=== PATIENT | female | born 1985 | race Caucasian/White ===

== ENCOUNTER 2017-02-08 14:55 | Emergency (ER) | payer OTHER ==
[~2017-02-08] VITALS: Ht 162.6 cm; Wt 82.4 kg
[2017-02-08 15:57] LABS: ADD MIUA? YES; BILIRUBIN NEGATIVE; BLOOD MODERATE; COLOR AMBER ((YELLOW)); GLUCOSE (STRIP) NEGATIVE; KETONES 20; LEUKOCYTES MODERATE; NITRITE POSITIVE; PROTEIN (STRIP) 100; SPECIFIC GRAVITY 1.025 (1.000-1.030); UROBILINOGEN 0.2 MG/DL (0.2-1.0)
[2017-02-08 16:02] LABS: HEMATOCRIT 37.2 % (36.0-46.0); MCH 29.8 PG (29.0-34.0); MCHC 33.9 G/DL (30.0-36.0); MCV 87.9 FL (83-99); MEAN PLAT.VOLUME 10.8 uM^3 (9.5-12.4); PLATELET COUNT 155 K/uL (156-360); RBC DIS.WIDTH-CV 11.9 % (11.8-14.6); RED BLOOD COUNT 4.23 M/uL (3.80-5.20); WHITE BLOOD COUNT 12.4 K/uL (4.1-10.2)
[2017-02-08 16:08] LABS: BACTERIA 3+ /HPF; EPITHELIAL CELLS 4+ /HPF; MUCUS 4+ /LPF; RED BLOOD CELLS 30-40 /HPF (0-5); UCUL ADDED? YES; WHITE BLOOD CELLS TNTC /HPF (0-5)
[2017-02-08 16:13] LABS: CHLORIDE 106 mEq/L (99-109); SODIUM 137 mEq/L (136-147)
[2017-02-08 16:15] LABS: GLUCOSE 112 mg/dL (70-99)
[2017-02-08 16:16] LABS: ANION GAP 10 MEQ/L (2-14)
[2017-02-08 16:19] LABS: GFR ESTIMATE (CALCULATED) > 59 mL/min/; UREA NITROGEN (BUN) 12 mg/dL (9-23)
[2017-02-08 16:27] LABS: QUANTITATIVE HCG < 4.0 MIU/ML
[2017-02-08] MEDS ORDERED: ZOFRAN4 MG PO (19:02)
[2017-02-08] MEDS ORDERED: PERCOCET 5/31 TABLET PO (19:02)
[2017-02-08 19:44] VITALS: BP 126/81
== END 2017-02-08 19:48 | disposition home or self-care (01) ==
LOC: EME 14:55
PROVIDERS: Physician Assistant
DX: N10 Acute pyelonephritis (principal); Z97.5 Presence of (intrauterine) contraceptive device; Z87.440 Personal history of urinary (tract) infections; F17.200 Nicotine dependence, unspecified, uncomplicated
CPT/HCPCS: 74177; 80048; 81003; 83605; 84702; 85027; 87040; 87077; 87086; 87186; 99281; 99284; J0696; J2270; J2405; J3010; J7030; J7050